=== PATIENT | female | born 1960 | race Caucasian/White ===

== ENCOUNTER 2017-09-20 13:57 | Inpatient (IN) | payer OTHER, MEDICARE ==
[~2017-09-20] VITALS: Ht 167.6 cm; Wt 56.7 kg
[2017-09-20] MEDS ORDERED: LITHIUM CARBON300 M4 PO (14:07)
[2017-09-20] MEDS ORDERED: FLUOXETINE HCL20 M2 PO (14:07)
[2017-09-20] MEDS ORDERED: MODAFINIL200 M1 PO (14:07)
[2017-09-20] MEDS ORDERED: NITROFURANTOIN50 M1 PO (14:08)
[2017-09-20 14:25] LABS: ABSOLUTE BASOPHIL COUNT 0 /CUMM (0.0-0.2); ABSOLUTE EOSINOPHIL COUNT 0 /CUMM (0.0-0.7); ABSOLUTE GRANULOCYTE CT 9.2 /CUMM (1.4-6.5); ABSOLUTE LYMPH COUNT 0.6 /CUMM (1.2-3.4); ABSOLUTE MONOCYTE COUNT 0.6 /CUMM (0.10-0.60); BASOPHIL % 0.1 % (0.0-2.0); EOSINOPHIL % 0.1 % (0-5); HEMATOCRIT 36.5 % (37-47); MEAN CORPUSCULAR HGB 31.1 PG (27.0-31.0); MEAN CORPUSCULAR HGB CONC 33.4 G/DL (33.0-37.0); MEAN CORPUSCULAR VOLUME 93.1 FL (81.0-99.0); MEAN PLATELET VOLUME 9.7 FL (7.4-10.4); RED BLOOD CELL CT 3.92 /CUMM (4.20-5.40); WHITE BLOOD CELL COUNT 10.4 /CUMM (4.8-10.8)
[2017-09-20 14:46] LABS: PLATELET COUNT 122 /CUMM (130-400)
[2017-09-20 14:47] LABS: GRANULOCYTE % 88.3 % (42.2-75.2)
[2017-09-20 14:55] LABS: LITHIUM 0.5 mmol/L (0.6-1.2)
--- NOTE | 2017-09-20 19:08 | ED AMS/SEIZURE/WEAK/DIZZY ---
History of Present Illness General Chief Complaint: Fever Stated Complaint: FEVER? WEAK Source: family Exam Limitations: clinical condition, confusion Vital Signs & Intake/Output Vital Signs & Intake/Output Vital Signs Date Time Temp Pulse Resp B/P B/P Pulse O2 O2 Flow FiO2 Mean Ox Delivery Rate 09/21 0031 98.3 09/20 2346 99.9 100/54 09/20 2327 100.0 84 16 123/59 99 Room Air 09/20 2315 99.2 80 16 92/53 99 Room Air 09/20 2209 99.9 83 16 99/60 95 Room Air 09/20 2129 100.7 09/20 2045 101.4 09/20 2013 101.4 88 18 96/58 99 Room Air 09/20 1827 78 19 98/56 97 Room Air 09/20 1406 99.8 85 22 107/65 96 ED Intake and Output 09/21 0000 09/20 1200 Intake Total 2000 Output Total 600 Balance 1400 Intake, IV 2000 Output, Urine 600 Patient 125 lb Weight Allergies Coded Allergies: No Known Allergies (09/20/17) Reconcile Medications Fluoxetine HCl 20 MG CAPSULE 1 CAP PO DAILY PROZAC (Reported) [place] Carbonate 300 MG CAPSULE 1 CAP PO BID BIPOLAR (Reported) Modafinil 200 MG TABLET 1 TAB PO QAM BIPOLAR (Reported) Nitrofurantoin Macrocrystal (Nitrofurantoin) 50 MG CAPSULE 1 CAP PO DAILY URINARY (Reported) Triage Note: PER HX OF BIPOLAR UNABLE TO TAKE ANY MEDS SINCE YESTERDAY D/T VOMITING NO DIARRHEA PT REPORTS TOO WEAK TO TALK, PER SPOUSE TEMP 103 90 MINUTES AGO DID NOT HAVE ANY TYLENOL Triage Nurses Notes Reviewed? yes Onset: Gradual Duration: getting worse Timing: recent history Injury Environment: home Severity: severe Severity Numbers: 7 HPI: Patient is a 57-year-old female with a past medical history of bipolar disorder currently compliant for 30 years of lithium chronic kidney disease due to lithium use, ADHD currently on modafinil and depression, UTIs who was brought in by family members who are concerned of a gradual onset since yesterday morning of profound listlessness weakness fatigue Symptoms worsen today where patient requires significant assistance to ambulate Family denies any loss of consciousness/speech or unilateral extremity weakness Family is also concerned of difficulty finding words when patient tries to speak History is limited due to patient's current clinical presentation Family does note a resolved fever prior to arrival Patient denies any headache blurred vision chest pain arm pain and jaw pain nausea vomiting Family is also noting worsening extremity tremors Patient last week just finished a course of nitrofurantoin for urinary tract infection patient denies any dysuria hematuria or increased frequency of urination (Edmar Montez) Past History Travel History Traveled to [place] past 21 day No Medical History Any Pertinent Medical History? see below for history Neurological: NONE EENT: NONE Cardiovascular: NONE Respiratory: NONE Gastrointestinal: NONE Hepatic: NONE Renal: NONE Musculoskeletal: NONE Psychiatric: bipolar disease Endocrine: NONE Surgical History Surgical History: non-contributory Psychosocial History What is your primary language Zambian Tobacco Use: Never used Family History Hx Contributory? No (Edmar Montez) Review of Systems Review of Systems Constitutional: Reports: see HPI, malaise, weakness. EENTM: Reports: no symptoms, see HPI. Respiratory: Reports: no symptoms, see HPI. Cardiovascular: Reports: see HPI. Denies: chest pain. GI: Reports: no symptoms, see HPI. Genitourinary: Reports: no symptoms. Musculoskeletal: Reports: no symptoms. Skin: Reports: no symptoms. Neurological/Psychological: Reports: see HPI, tremors. Hematologic/Endocrine: Reports: see HPI. Immunologic/Allergic: Reports: no symptoms. All Other Systems: Reviewed and Negative (Edmar Montez) Physical Exam Physical Exam General Appearance: no apparent distress, alert, lethargic Head: atraumatic Eyes: Bilateral: normal appearance, PERRL, EOMI. Ears, Nose, Throat: normal pharynx, normal ENT inspection, hearing grossly normal Neck: normal inspection Respiratory: chest non-tender, no respiratory distress Cardiovascular: regular rate/rhythm Peripheral Pulses: 2+ radial (R) Gastrointestinal: normal bowel sounds, soft, non-tender Extremities: limited range of motion Neurologic/Psych: awake, ORIENTED TO PLACE ONLY Core Measures ACS in differential dx? Yes CVA/TIA Diagnosis No NIH Stroke Scale (24 Hours) NIH Stroke Scale (24 Hours) Response Value Level of Consciousness drowsy 1 LOC Questions answers one correctly 1 LOC Commands obeys both correctly 0 Best Gaze normal 0 Visual [place] no visual loss 0 Facial Paresis normal 0 Motor Arm - Left drift 1 Motor Arm - Right drift 1 Motor Leg - Left no drift 0 Motor Leg - Right no drift 0 Limb Ataxia no ataxia 0 Sensory normal 0 Best Language mild to moderate aphasia 1 Dysarthria mild/mod slurring words 1 Extinction and Inattention no neglect 0 Total 6 Date Last Known Well 09/19/17 Time Last Known Well 0800 Swallow Evaluation Pass Swallow eval date 09/20/17 Swallow eval time 1952 Sepsis Present: No Sepsis Focused Exam Completed? No (Lidia HERNANDEZ,Edmar) Progress Differential Diagnosis: arrythmia, alcohol intoxication, anemia, benign positional vertigo, CVA/stroke, dehydration, drug intoxication, encephalitis, electrolyte imbalance, GI bleed, hypoglycemia, hypoxia, intracranial Hem., intracranial mass/tumor, labrynthitis, meningitis, Meniere's disease, migraine [place], multiple sclerosis, pneumonia, postural hypotension, presyncope, post- traumatic vertigo, sepsis, seizure disorder, subarachnoid Hem., UTI/pyelo, vertebrobasilar insuff Plan of Care: Orders Procedure Date/time Status Heart Healthy Diet 09/21 B Active LACTIC ACID 09/21 0255 Active Patient Data 09/21 0001 Active LACTIC ACID 09/20 2355 Active ED Holding Orders 09/20 2333 Active Admit to inpatient 09/20 2333 Active Vital Signs 09/20 2333 Active Code Status 09/20 2333 Active Add-on Test (ER Only) 09/20 2216 Active BLOOD CULTURE 09/20 2154 Active CEREBROSPINAL FLUID CULTURE 09/20 2126 Active CYTOLOGY SPECIMEN 09/20 2126 Active CSF TOTAL PROTEIN 09/20 2126 Complete CEREBROSPINAL FL CELL CT 09/20 2126 Complete CSF GLUCOSE 09/20 2126 Complete Add-on Test (ER Only) 09/20 210 Active CULTURE,URINE 09/20 1999 Active LACTIC ACID 09/20 193 Complete Add-on Test (ER Only) 09/20 191 Active Add-on Test (ER Only) 09/20 1914 Active Add-on Test (ER Only) 09/20 191 Active AMMONIA 09/20 1913 Complete EKG 09/20 190 Active THYROID STIMULATING HORMONE 09/20 1418 Complete TROPONIN LEVEL 09/20 1418 Complete FREE T4 09/20 1418 Complete ETHANOL 09/20 1418 Complete CREATINE PHOSPHOKINASE 09/20 1418 Complete RAPID VIRAL INFLUENZA A 09/20 1409 Complete URINE DRUG SCREEN FOR ER ONLY 09/20 1408 Complete URINALYSIS 09/20 1408 Complete MAGNESIUM 09/20 1408 Complete LITHIUM 09/20 1408 Complete COMPREHENSIVE METABOLIC PANEL 09/20 1408 Complete CBC WITHOUT DIFFERENTIAL 09/20 1408 Complete Current Medications Sig/Kirk Start time Last Medication Dose Stop Time Status Admin Sodium Chloride 1,000 ML ONCE ONE 09/20 2345 AC 09/21 (Normal Saline 0.9%) 09/21 623 0044 Laboratory Tests 09/21/17 0043: Lactic Acid Pending 09/20/172129: CSF Glucose 60, CSF Total Protein 39 09/20/172129: CSF WBC 2, CSF RBC 0, CSF Comment 09/20/171999: Urine Opiates Screen < 100.00, Methadone Screen < 40, Barbiturate Screen < 60, Ur Phencyclidine Scrn < 6.00, Amphetamines Screen < 100, U Benzodiazepines Scrn < 85, Urine Cocaine Screen < 50, Urine Cannabis Screen < 5.00, Urine Color STRAW , Urine Clarity HAZY H, Urine pH 6.5, Ur Specific [place] 1.010, Urine Protein 100 H, Urine Ketones NEG, Urine Nitrite NEG, Urine Bilirubin NEG, Urine Urobilinogen 0.2, Ur Leukocyte Esterase LARGE H, Ur Microscopic SEDIMENT EXAMINED, Urine RBC FEW H, Urine WBC > 75 H, Ur Epithelial Cells MANY H, Urine Bacteria MANY H, Urine Hemoglobin MOD H, Urine Glucose NEG 09/20/17 193: Lactic Acid 0.8, Ammonia < 9 L 09/20/17 1418: Anion Gap 15, Estimated GFR 27 L, BUN/Creatinine Ratio 13.7, Glucose 93, Calcium 10.1, Magnesium 2.3, Total Bilirubin 0.4, AST 17, ALT 30, Alkaline Phosphatase 74, Creatine Kinase 26 L, Troponin I < 0.01, Total Protein 6.7, Albumin 4.2, Globulin 2.5, Albumin/Globulin Ratio 1.7, TSH 1.010, Free T4 0.81, CBC w Diff NO MAN DIFF REQ, RBC 3.92 L, MCV 93.1, MCH 31.1 H, MCHC 33.4, RDW 14.0, MPV 9.7, Gran % 88.3 H, Lymphocytes % 6.0 L, Monocytes % 5.5, Eosinophils % 0.1, Basophils % 0.1, Absolute Granulocytes 9.2 H, Absolute Lymphocytes 0.6 L, Absolute Monocytes 0.6, Absolute Eosinophils 0, Absolute Basophils 0, [place] 0.5 L, Serum Alcohol < 10.0 Microbiology 09/20 2254 BLOOD: Blood Culture - RECD 09/20 2239 BLOOD: Blood Culture - RECD 09/20 2129 CENT N S: CSF Culture - RES 09/20 2129 CENT N S: Gram Stain - RES 09/20 1999 URINE ROUT: Urine Culture - RECD 09/20 1410 NASOPHARYN: Influenza Virus A & B Rapid Smear - COMP Per nursing staff that while in triage they evaluated patient and patient was having a blank stare and when asking questions she was not responding and staring out in the distance Patient on initial examination was noted to be listless and lethargic and alert and oriented 1 Patient does follow all commands appropriately on initial examination however does show bilateral extremity weakness CT scan was unremarkable CT scan was unremarkable however patient did have noted fever on the emergency room and hypotension Patient was given IV fluids IV acetaminophen No meningeal signs on exam negative Brudzinski negative Kernig however meningitis is of my differential were lumbar puncture was performed no complications CSF fluid and culture pending Blood cultures urine culture pending Patient's initial NIH stroke scale was noted to be 6 Patient does present with confusion and suspicion of sepsis Patient after fluid resuscitation was administered had improvement of hypotension upon admission Discussed admission with patient and family members were aware and have no questions Diagnostic Imaging: Viewed by Me: CT Scan. Radiology Impression: no acute abnormality, no fracture Initial ED EKG: normal QRS complex, normal sinus rhythm (83 BPM,NSR) Comments: PATIENT: YANCI HUTSON PRESENT AGE: 57 PATIENT ACCOUNT NO: [id number] : 56 LOCATION: [facility] ORDERING PHYSICIAN: Edmar HERNANDEZ SERVICE DATE: 09/20/17 EXAM TYPE: CAT - CT HEAD WO IV CONTRAST EXAMINATION: CT HEAD WITHOUT CONTRAST CLINICAL INFORMATION: Confusion. Altered mental status. COMPARISON: None TECHNIQUE: Contiguous axial imaging was performed from the skull base to vertex without intravenous administration of contrast. DLP: 596.52 mGy-cm FINDINGS: There is no evidence of acute intracranial hemorrhage or territorial infarction. No abnormal mass effect or midline shift is seen. [place] to white matter differentiation is well preserved. No extra-axial fluid collections are identified. The ventricles are normal in size. There is no abnormal attenuation within the brain parenchyma. The osseous structures and soft tissues are normal. The mastoid air cells and visualized portions of the paranasal sinuses are well aerated. IMPRESSION: No acute intracranial pathology. DICTATED BY: Jose Prieto MD DATE/TIME DICTATED:09/20/172010 MAINTENANCE CONSTRUCTION HELPER:KWAN DATE/TIME TRANSCRIBED:09/20/172010 (Edmar Montez) ED Sepsis Exam Date of Focused Sepsis Exam: 09/20/17 Time of Focused Sepsis Exam: 1999 Sepsis Cardiac Exam: Tachycardia Sepsis Resp Exam: CTA Sepsis Cap Refill Exam: <2 Sec Sepsis Peripheral Pulse Exam: Normal Sepsis Peripheral Pulse Location: Radial Sepsis Skin Color Exam: Normal for Ethnicity Skin Temp/Moisture Exam: Warm/Dry (Edmar Montez) Departure Departure Disposition: STILL A PATIENT Condition: Guarded Clinical Impression Primary Impression: Sepsis Secondary Impressions: Altered mental status, UTI (urinary tract infection) Referrals: Candido Rojas APRN (PCP/Family) Departure Forms: Customer Survey General Discharge Information Admission Note Spoke With: Carlene Colón MD Documentation of Exam: Documentation of any treatments & extenuating circumstances including Concerns Regarding Discharge (functional status, medication knowledge or non-compliance, living conditions, etc.) that warrant an admission rather than observation: [ Patient requires IV antibiotics, infectious disease consultation, IV fluid resuscitation repeat labs] (Edmar Montez) PA/ROUGH RICE GRADER Co-Sign Statement Statement: ED Attending supervision documentation- [X] I saw and evaluated the patient. I have also reviewed all the pertinent lab results and diagnostic results. I agree with the findings and the plan of care as documented in the PA's/ROUGH RICE GRADER's documentation. [X] I have reviewed the ED Record and agree with the PA's/ROUGH RICE GRADER's documentation. [] Additions or exceptions (if any) to the PAs/ROUGH RICE GRADER's note and plan are summarized below: [Patient to be admitted for sepsis urological origin. Follow-up CSF cultures as well as blood cultures. ID consultation, aggressive hydration.] (Misty ZAVALA,Jairo Petit) Procedures Additional Procedures Additional Procedures: lumbar puncture Progress: Discussed risks and benefits of lumbar puncture with patient and family members, signed consent form, Under sterile technique patient was placed in right lateral decubitus position using landmarks L3-L4 was located using approximately 10 mL of 1% lidocaine local anesthesia was successful After one attempt a nontraumatic clear cerebral spinal fluid was obtained Patient tolerated procedure well 5 minutes of direct pressure was used after needle was removed and bandage was applied patient was placed in supine 30 of head of bed (Edmar Montez) Critical Care Note Critical Care Note Critical Care Time: 30-74 min (Edmar Montez)
--- NOTE | 2017-09-20 20:16 | CT SCAN REPORT ---
EXAMINATION: CT HEAD WITHOUT CONTRAST CLINICAL INFORMATION: Confusion. Altered mental status. COMPARISON: None TECHNIQUE: Contiguous axial imaging was performed from the skull base to vertex without intravenous administration of contrast. DLP: 596.52 mGy-cm FINDINGS: There is no evidence of acute intracranial hemorrhage or territorial infarction. No abnormal mass effect or midline shift is seen. [place] to white matter differentiation is well preserved. No extra-axial fluid collections are identified. The ventricles are normal in size. There is no abnormal attenuation within the brain parenchyma. The osseous structures and soft tissues are normal. The mastoid air cells and visualized portions of the paranasal sinuses are well aerated. IMPRESSION: No acute intracranial pathology.
--- NOTE | 2017-09-21 00:06 | History & Physical ---
General Information and HPI Allergies/Medications Allergies: Coded Allergies: No Known Allergies (09/20/17) Home Med list Fluoxetine HCl 20 MG CAPSULE 1 CAP PO DAILY PROZAC (Reported) [place] Carbonate 300 MG CAPSULE 1 CAP PO BID BIPOLAR (Reported) Modafinil 200 MG TABLET 1 TAB PO QAM BIPOLAR (Reported) Nitrofurantoin Macrocrystal (Nitrofurantoin) 50 MG CAPSULE 1 CAP PO DAILY URINARY (Reported) Past History Travel History Traveled to [place] past 21 day No Medical History Neurological: NONE EENT: NONE Cardiovascular: NONE Respiratory: NONE Gastrointestinal: NONE Hepatic: NONE Renal: NONE Musculoskeletal: NONE Psychiatric: bipolar disease Endocrine: NONE Surgical History Surgical History: non-contributory Core Measures/Misc (05/02) Cerebrovascular Accident CVA/TIA Diagnosis: No Date Last Known Well: 09/19/17 Time Last Known Well: 0800 Swallow Evaluation Pass
--- NOTE | 2017-09-21 02:08 | History & Physical ---
Mary ZAVALA,[facility] 09/21/17 0208: General Information and HPI MD Statement: I have seen and personally examined YANCI HUTSON and documented this H&P. The patient is a 57 year old F who presented with a patient stated chief complaint of decreased responsiveness and lethargy. Source of Information: patient, family Exam Limitations: clinical condition History of Present Illness: Ms Andrade is a 57-year-old female with past medical history of bipolar disorder , manic depressive disorder, IBS who presented to the emergency department due to continued lethargy and change in mentation for 48 hours prior to admission. Much of the clinical history was obtained by the patient's Bill who was present at bedside. Patient was in her normal state of health until the morning of Wednesday09/19/2017. She subsequently developed decreased by mouth intake over the course of the day. On Wednesday evening the patient became even more listless. On Wednesday morning the patient's was concerned that the patient's mentation was changing (she became less responsive) and subsequently brought her into the emergency department for additional workup. Patient has had multiple urinary tract infections owing to a surgical history of a bladder/uterine lift? She was started on an antibiotic (unsure of the name) on 09/13/2017. It also appears that the patient had called her primary care physician requesting an additional antibiotic to be started on 09/20/2017. On this occasion she was prescribed Nitrofurantion. Over the course of our clinical interaction the patient's mentation did improve and she was able to participate in the HPI. She subsequently denied any nausea, vomiting but she did endorse subjective chills. No recent weight loss or fever. No chest pain. No cough no shortness of breath. No abdominal pain. She did endorse dysuria, frequency, foul- smelling dysuria and some hematuria. No exposure to sick contacts recently. Patient's primary care physician is Dr Candido Rojas at [facility] in [facility]. Allergies/Medications Allergies: Coded Allergies: No Known Allergies (09/20/17) Home Med list Fluoxetine HCl 20 MG CAPSULE 1 CAP PO DAILY PROZAC (Reported) Cantril Carbonate 300 MG CAPSULE 1 CAP PO BID BIPOLAR (Reported) Modafinil 200 MG TABLET 1 TAB PO QAM BIPOLAR (Reported) Nitrofurantoin Macrocrystal (Nitrofurantoin) 50 MG CAPSULE 1 CAP PO DAILY URINARY (Reported) Compliance With Home Meds: GOOD Past History Travel History Traveled to [place] past 21 day No Medical History Neurological: NONE EENT: NONE Cardiovascular: NONE Respiratory: NONE Gastrointestinal: NONE Hepatic: NONE Renal: NONE Musculoskeletal: NONE Psychiatric: bipolar disease Endocrine: NONE Surgical History Surgical History: knee replacement (December 2016) Past Family/Social History Psychosocial History Where do you live? Home Who Do You Live With? spouse Services at Home: None Primary Language: Tam[place] Smoking Status: Former Smoker ETOH Use: denies use Illicit Drug Use: denies illicit drug use Functional Ability ADLs Independent: dressing, eating, toileting, bathing. Ambulation: independent IADLs Independent: shopping, housework, finances, food prep, telephone, transportation , medication admin. Review of Systems Review of Systems Constitutional: Denies: see HPI. Exam & Diagnostic Data Last 24 Hrs of Vital Signs/I&O Vital Signs Date Time Temp Pulse Resp B/P B/P Pulse O2 O2 Flow FiO2 Mean Ox Delivery Rate 09/21 0620 98.7 88 18 92/52 96 09/21 0406 98.1 68 18 92/58 09/21 0126 99.2 91 20 98/67 97 Room Air 09/21 0031 98.3 09/20 2346 99.9 100/54 02 2327 100.0 84 16 123/59 99 Room Air / 2315 99.2 80 16 92/53 99 Room Air 09/20 2209 99.9 83 16 99/60 95 Room Air 09/20 2129 100.7 09/20 2045 101.4 09/20 2013 101.4 88 18 96/58 99 Room Air 09/20 1827 78 19 98/56 97 Room Air 09/20 1406 99.8 85 22 107/65 96 Intake & Output 09/21 0800 / 0000 09/20 1600 Intake Total 2000 Output Total 800 600 Balance -800 1400 Intake, IV 2000 Output, Urine 800 600 Patient 56.699 kg 56.699 kg Weight Physical Exam General Appearance Alert, Cooperative, No Acute Distress, Oriented to time and person. Skin No Rashes, No Breakdown Skin Temp/Moisture Exam: Warm/Dry Sepsis Skin Exam (color): Normal for Ethnicity HEENT Mucous membreanes dry Cardiovascular Regular Rate, Normal S1, Normal S2 Lungs Clear to Auscultation Abdomen Normal Bowel Sounds, Soft, No Tenderness, Left Sided CVA Tenderness + Neurological Normal Speech, Strength at 5/5 X4 Ext Extremities No Cyanosis, No Edema, Normal Pulses Vascular Normal Pulses Last 24 Hrs of Labs/Danie: Laboratory Tests 09/21/17 0617: Sodium Pending, Potassium Pending, Chloride Pending, Carbon Dioxide Pending, Anion Gap Pending, BUN Pending, Creatinine Pending, BUN/Creatinine Ratio Pending , Lactic Acid Pending, CBC w Diff Pending, WBC Pending, RBC Pending, Hgb Pending , Hct Pending, MCV Pending, MCH Pending, MCHC Pending, RDW Pending, Plt Count Pending, MPV Pending 09/21/17 0600: Lactic Acid Cancelled, CBC w Diff Cancelled, WBC Cancelled, RBC Cancelled, Hgb Cancelled, Hct Cancelled, MCV Cancelled, MCH Cancelled, MCHC Cancelled, RDW Cancelled, Plt Count Cancelled, MPV Cancelled 09/21/17 0255: Lactic Acid Cancelled 09/21/17 0043: Lactic Acid 0.8 09/20/170: CSF Glucose 60, CSF Total Protein 39 09/20/172129: CSF WBC 2, CSF RBC 0, CSF Comment 09/20/171999: Urine Opiates Screen < 100.00, Methadone Screen < 40, Barbiturate Screen < 60, Ur Phencyclidine Scrn < 6.00, Amphetamines Screen < 100, U Benzodiazepines Scrn < 85, Urine Cocaine Screen < 50, Urine Cannabis Screen < 5.00, Urine Color STRAW , Urine Clarity HAZY H, Urine pH 6.5, Ur Specific [place] 1.010, Urine Protein 100 H, Urine Ketones NEG, Urine Nitrite NEG, Urine Bilirubin NEG, Urine Urobilinogen 0.2, Ur Leukocyte Esterase LARGE H, Ur Microscopic SEDIMENT EXAMINED, Urine RBC FEW H, Urine WBC > 75 H, Ur Epithelial Cells MANY H, Urine Bacteria MANY H, Urine Hemoglobin MOD H, Urine Glucose NEG 09/20/17 1932: Lactic Acid 0.8, Ammonia < 9 L 09/20/17 1418: Anion Gap 15, Estimated GFR 27 L, BUN/Creatinine Ratio 13.7, Glucose 93, Calcium 10.1, Magnesium 2.3, Total Bilirubin 0.4, AST 17, ALT 30, Alkaline Phosphatase 74, Creatine Kinase 26 L, Troponin I < 0.01, Total Protein 6.7, Albumin 4.2, Globulin 2.5, Albumin/Globulin Ratio 1.7, TSH 1.010, Free T4 0.81, CBC w Diff NO MAN DIFF REQ, RBC 3.92 L, MCV 93.1, MCH 31.1 H, MCHC 33.4, RDW 14.0, MPV 9.7, Gran % 88.3 H, Lymphocytes % 6.0 L, Monocytes % 5.5, Eosinophils % 0.1, Basophils % 0.1, Absolute Granulocytes 9.2 H, Absolute Lymphocytes 0.6 L, Absolute Monocytes 0.6, Absolute Eosinophils 0, Absolute Basophils 0, Cantril 0.5 L, Serum Alcohol < 10.0 Microbiology 09/20 2254 BLOOD: Blood Culture - RECD 09/20 2239 BLOOD: Blood Culture - RECD 09/20 2129 CENT N S: CSF Culture - RES 09/20 2129 CENT N S: Gram Stain - RES 09/20 1999 URINE ROUT: Urine Culture - RECD 09/20 1410 NASOPHARYN: Influenza Virus A & B Rapid Smear - COMP Assessment/Plan Assessment: Ms Andrade is a 57-year-old female with past medical history of bipolar disorder , manic depressive disorder, IBS who presented to the emergency department due to continued lethargy and change in mentation for 48 hours prior to admission. Her mentation changes likely due to extreme dehydration in the setting of a UTI. A lumbar Puncture was done in the ER, which was non significant. We will admit her to the Gen. medical service and address the following problems. #UTI, suspect pyelonephritis #Altered Mental Status #History of bipolar #History ADHD Continue ceftriaxone. Repeat CBC and BEP. Lactate with AM labs to ensure no significan hypoperfusion. If AM creatinine improves obtain CT abdomen and pelvis with contrast to rule out pyelonephritis given left-sided CVA tenderness. The patient remains hypotensive over the course of the morning despite aggressive fluid hydration may consider escalating care to the critical care unit. Follow-up on urinary cultures. Follow-up blood cultures. May consider Urology consultation to rule out structural abnormalities especially in light of the recent multiple recurrent UTI's. Continue home medications. Diet heart healthy. DVT prophylaxis with heparin Patient is a full code As Ranked By This Provider Problem List: 1. UTI (urinary tract infection) 2. Sepsis 3. Altered mental status Core Measures/Misc (05/02) Acute Coronary Syndrome ACS Diagnosis: No Congestive Heart Failure Congestive Heart Failure Diagnosis No Cerebrovascular Accident CVA/TIA Diagnosis: No Date Last Known Well: 09/19/17 Time Last Known Well: 0800 Swallow Evaluation Pass VTE (View Protocol) VTE Risk Factors Age>40 No Mechanical VTE Prophylaxis d/t N/A MechProphylax Ordered No VTE Pharm Prophylaxis d/t NA PharmProphylax ordered Sepsis (View protocol) Sepsis Present: Yes Resident Review Statement Resident Statement: examined this patient, discussed with internal corrosion specialist Carlene Colón 09/21/17 0809: Attending MD Review Statement Attending Statement Attending MD Statement: examined this patient, discuss w/resident/PA/P[employer] AND [employer]OVEL WORKER, agreed w/resident/PA/[employer] AND [employer]OVEL WORKER, discussed with family, reviewed EMR data (avail), reviewed images, amended to note Attending Assessment/Plan: CC: Altered behavior PMH: Bipolar disorder, IBS, ADHD, right knee replacement, surgery for uterus prolapse Patient was brought in ER by her for altered behavior, extremely lethargic, extremely forgetful, fever spike of 102.5. Patient does not provide much details. bedside provides the history. Patient endorses increased urinary frequency and burning. According to patient's patient was prescribed antibiotic for UTI few days back, patient never took them. Last few days patient appeared extremely lethargic, unable to take medications. Even though ER note mentions about diarrhea and vomiting patient and her denies that. No loss of consciousness, no seizure-like activity but patient had some staring spells. No falls, no dysarthria. Patient just was more listless and abnormal behavior. Vitals: BP max 101.4, pulse 80s, RR 22, blood pressure 107/65 on arrival stabilized around 99/60, saturating 96% on room air On exam: A O 2, cooperative, thin built, no acute distress, neck supple, JVD normal, no lymphadenopathy, mucosa dry, no focal neurological deficit, no dependent edema, no obvious skin rashes or inflammation CVS: S1-S2, RRR. RS: Clear to auscultate bilaterally. Abdomen: Soft, NT, ND, bowel sounds present, left CVA tenderness Labs: WBC 10.4, hemoglobin 12.2, hematocrit 36.5, platelet 122, neutrophils 88%, BMP and LFT unremarkable except creatinine 1.9, ammonia less than 9, CK 26, troponin 0.01, U tox unremarkable UA positive for leukocyte esterase CSF WBC to RBC 0 glucose [address] head: No acute intracranial pathology. Assessment and plan 52-year-old female with past medical history significant for bipolar disorder, IBS, ADHD presented in ER for increased lethargy, listlessness, fever of 102.5 at home with UTI symptoms. Given her altered mental status and fever spike in ER lumbar puncture was performed which was not significant. She has right CVA tenderness, evidence of UTI with mild left shift. Upon aggressive hydration and antibiotics patient's mentation improved remarkably. + Suspected left pyelonephritis + Metabolic encephalopathy secondary to infection + History of Bipolar disorder, IBS, ADHD, right knee replacement, surgery for uterus prolapse - Admit to general medicine - Continue aggressive hydration - Trend lactate - Continue IV ceftriaxone - Follow blood culture and urine culture - Continue her on psych meds - If creatinine improves get CT abdomen with IV contrast in a.m., if no improvement consider CT without contrast for pyelonephritis - DVT prophylaxis
--- NOTE | 2017-09-21 08:05 | PN- Housestaff ---
Wendy Rothmna 09/21/17 0805: Subjective Follow-up For: Sepsis of urologic origin Altered mental status(metabolic encephalopathy secondary to underlying urinary tract infection) History of bipolar disease History of IBS Subjective: Patient is seen and examined this morning seems much better than yesterday, nausea is better. Vitals are stable. Denies any shortness of breath trouble breathing palpitations. Denies any abdominal discomfort. No urinary symptoms including hematuria or frequency urgency. Review of Systems Constitutional: Denies: chills, diaphoresis, fever, malaise. EENTM: Denies: double vision, visual changes, eye pain. Cardiovascular: Denies: chest pain, edema, orthopena. Respiratory: Denies: cough, hemoptysis, orthopnea. Gastrointestinal: Denies: abdominal pain, constipation, diarrhea. Objective Last 24 Hrs of Vital Signs/I&O Vital Signs Date Time Temp Pulse Resp B/P B/P Pulse O2 O2 Flow FiO2 Mean Ox Delivery Rate 09/21 1156 98.1 74 20 100/60 100 Room Air 09/21 0842 98.1 79 20 90/60 97 Room Air / 0620 98.7 88 18 92/52 96 / 0406 98.1 68 18 92/58 02/ 0126 99.2 91 20 98/67 97 Room Air / 0031 98.3 02/05 2346 99.9 100/54 02/05 2327 100.0 84 16 123/59 99 Room Air 02/05 2315 99.2 80 16 92/53 99 Room Air / 2209 99.9 83 16 99/60 95 Room Air / 2129 100.7 / 2045 101.4 09/20 2014 101.4 88 18 96/58 99 Room Air 02/05 1827 78 19 98/56 97 Room Air Intake & Output 09/21 1600 02/06 0800 02/ 0000 Intake Total 2000 Output Total 800 600 Balance -800 1400 Intake, IV 2000 Output, Urine 800 600 Patient 125 lb Weight Physical Exam General Appearance: Alert, Oriented X3 Skin: No Rashes, No Breakdown Cardiovascular: Regular Rate, Normal S1, Normal S2 Lungs: Clear to Auscultation Abdomen: Normal Bowel Sounds, Soft, No Tenderness Neurological: Normal Gait, Normal Speech Extremities: No Clubbing, No Cyanosis Current Medications: Current Medications Sig/Kirk Start time Last Medication Dose Route Stop Time Status Admin Acetaminophen 0 .STK-MED ONE 09/20 2043 DC IV Acetaminophen 1,000 MG ONCE ONE 09/20 2029 DC 09/20 N/A 1 UNIT IV 09/20 Ceftriaxone Sodium 1,000 MG DAILY 09/21 1000 AC 09/21 IV 1000 Ceftriaxone Sodium 0 .STK-MED ONE 09/20 2226 DC .ROUTE Ceftriaxone Sodium 1,000 MG ONCE ONE 09/20 2214 DC 09/20 IV 09/20 221 2314 Fluoxetine HCl 20 MG DAILY 09/21 1000 AC 09/21 PO 1000 Heparin Sodium 0 .STK-MED ONE 09/21 1410 DC (Porcine) .ROUTE Heparin Sodium 0 .STK-MED ONE 09/21 0848 DC (Porcine) .ROUTE Heparin Sodium 5,000 UNIT Q8 09/21 0600 AC 09/21 (Porcine) SC 1358 Lactobacillus 1 CAP BID 09/21 1315 AC 09/21 Acidophilus PO 1358 Lidocaine 0 .STK-MED ONE 09/20 2046 DC .ROUTE Schaller Carbonate 300 MG BID 09/21 1000 AC 09/21 PO 1000 Modafinil 200 MG DAILY 09/21 1000 AC 09/21 PO 1000 Sodium Chloride 1,000 ML Q10H 09/21 0830 DC IV 09/22 0429 Sodium Chloride 1,000 ML Q6H 09/21 0245 DC 09/21 IV 09/21 0844 0249 Sodium Chloride 1,000 ML ONCE ONE 09/20 2345 DC 09/21 IV 09/21 0624 0044 Sodium Chloride 1,000 ML BOLUS ONE 09/20 2214 DC 09/20 IV 09/20 2314 2222 Sodium Chloride 1,000 ML BOLUS ONE 09/20 2029 DC 09/20 IV 09/209 2038 Sodium Chloride 1,000 ML BOLUS ONE 09/20 1845 DC 09/20 IV 09/20 1944 1855 Last 24 Hrs of Lab/Danie Results Last 24 Hrs of Labs/Mics: Laboratory Tests 09/21/17 0617: Anion Gap 14, Estimated GFR 33 L, BUN/Creatinine Ratio 15.0, Lactic Acid 1.1, CBC w Diff NO MAN DIFF REQ, RBC 2.85 L, MCV 95.1, MCH 31.3 H, MCHC 32.9 L, RDW 14.4, MPV 10.2, Gran % 88.1 H, Lymphocytes % 4.0 L, Monocytes % 7.8, Eosinophils % 0, Basophils % 0.1, Absolute Granulocytes 6.8 H, Absolute Lymphocytes 0.3 L, Absolute Monocytes 0.6, Absolute Eosinophils 0, Absolute Basophils 0 09/21/17 0600: Lactic Acid Cancelled, CBC w Diff Cancelled, WBC Cancelled, RBC Cancelled, Hgb Cancelled, Hct Cancelled, MCV Cancelled, MCH Cancelled, MCHC Cancelled, RDW Cancelled, Plt Count Cancelled, MPV Cancelled 09/21/17 0255: Lactic Acid Cancelled 09/21/17 0043: Lactic Acid 0.8 09/20/172129: CSF Glucose 60, CSF Total Protein 39 09/20/172129: CSF WBC 2, CSF RBC 0, CSF Comment 09/20/171999: Urine Opiates Screen < 100.00, Methadone Screen < 40, Barbiturate Screen < 60, Ur Phencyclidine Scrn < 6.00, Amphetamines Screen < 100, U Benzodiazepines Scrn < 85, Urine Cocaine Screen < 50, Urine Cannabis Screen < 5.00, Urine Color STRAW , Urine Clarity HAZY H, Urine pH 6.5, Ur Specific [place] 1.010, Urine Protein 100 H, Urine Ketones NEG, Urine Nitrite NEG, Urine Bilirubin NEG, Urine Urobilinogen 0.2, Ur Leukocyte Esterase LARGE H, Ur Microscopic SEDIMENT EXAMINED, Urine RBC FEW H, Urine WBC > 75 H, Ur Epithelial Cells MANY H, Urine Bacteria MANY H, Urine Hemoglobin MOD H, Urine Glucose NEG 09/20/17 193: Lactic Acid 0.8, Ammonia < 9 L Microbiology 09/20 2254 BLOOD: Blood Culture - RES GRAM NEGATIVE RODS 09/20 2239 BLOOD: Blood Culture - RES GRAM NEGATIVE RODS 09/20 2129 CENT N S: CSF Culture - RES 09/20 2129 CENT N S: Gram Stain - RES 09/20 1999 URINE ROUT: Urine Culture - RES GRAM NEGATIVE RODS Assessment/Plan Assessment: Patient is a 52-year-old female with past medical history significant for bipolar disorder, IBS, ADHD, recurrent urinary tract infections with last many years(chronically on antibiotics), presented again to the ED for the evaluation of altered mental status with evidence of urinary tract infection on labs. Personal vitals on admission: Tmax of 101.4, with blood pressure 107/65, pulse 80s, RR 22, Labs: WBC 10.4, hemoglobin 12.2, hematocrit 36.5, platelet 122, neutrophils 88%, BMP and LFT unremarkable except creatinine 1.9, ammonia less than 9, CK 26, troponin 0.01, U tox unremarkable UA positive for leukocyte esterase CSF WBC to RBC 0 glucose [address] head: No acute intracranial pathology. Problem list: Sepsis of urologic origin Altered mental status(metabolic and gastropathy secondary to underlying urinary tract infection) History of bipolar disease History of IBS Plan: Sepsis of urologic origin with Altered mental status(metabolic encephalopathy secondary to underlying urinary tract infection) * Continue to monitor patient on the [facility] * Mental status improved after getting IV antibiotics and fluids, urine cultures grew gram-negative rods(culture sensitivities are still pending) * Continue with IV ceftriaxone and fluids for now pending above * Pending blood cultures. * Patient has been evaluated by Dr. Alonzo recommended to continue with conservative management with IV antibiotics and fluids, will do bladder scan with residual urine volume. * Obtain CT abdomen and pelvis without contrast to rule out any underlying pyelonephritis( CT cannot be done with contrast due to elevated creatinine. * H&H dropped likely due to hemodilution after getting fluids Will monitor CBCs tomorrow. Acute kidney failure likely due to the dehydration * Creatinine improved from yesterday continue with IV fluids avoid any nephrotoxic agents. Hypernatremia * Likely due to dehydration * Monitor sodium tomorrow Continue all her home medications. DVT prophylaxis with heparin Patient is full code Problem List: 1. UTI (urinary tract infection) 2. Sepsis 3. Altered mental status Pain Ratin Pain Location: When necessary Tylenol Pain Goal: Remain pain free Pain Plan: PRN TYLENOL Tomorrow's Labs & Rationales: CBC AND BEP Feng ZAVALA,Kelly 09/21/17 1127: Attending MD Review Statement Attending Statement Attending MD Statement: examined this patient, discuss w/resident/PA/WORKING SUPERVISOR, agreed w/resident/PA/WORKING SUPERVISOR, discussed with family, reviewed EMR data (avail), discussed with nursing, discussed with case mgmt, reviewed images, amended to note Attending Assessment/Plan: Patient seen and examined, feels slightly better. Backis improved a little. Patient denies any sob, cp. Vital Signs Date Time Temp Pulse Resp B/P B/P Pulse O2 O2 Flow FiO2 Mean Ox Delivery Rate 09/21 0842 98.1 79 20 90/60 97 Room Air 09/21 0620 98.7 88 18 92/52 96 09/21 0406 98.1 68 18 92/58 09/21 0126 99.2 91 20 98/67 97 Room Air 09/21 0031 98.3 09/20 2346 99.9 100/54 09/20 2327 100.0 84 16 123/59 99 Room Air 09/20 2315 99.2 80 16 92/53 99 Room Air 09/20 2209 99.9 83 16 99/60 95 Room Air 09/20 2129 100.7 09/20 2045 101.4 09/20 2013 101.4 88 18 96/58 99 Room Air 09/20 1827 78 19 98/56 97 Room Air 09/20 1406 99.8 85 22 107/65 96 on exam; aox3, nad. cv; s1,s2, rrr resp; clear abd; soft, + left cva tenderness, bs+ ext; no edema. Laboratory Tests 09/21 09/21 09/21 0617 0600 0255 Chemistry Sodium (137 - 145 mmol/L) 148 H Potassium (3.5 - 5.1 mmol/L) 4.3 Chloride (98 - 107 mmol/L) 119 H Carbon Dioxide (22 - 30 mmol/L) 15 L Anion Gap (5 - 16) 14 BUN (7 - 17 mg/dL) 24 H Creatinine (0.5 - 1.0 mg/dL) 1.6 H Estimated GFR (>60 ml/min) 33 L BUN/Creatinine Ratio (7 - 25 %) 15.0 Lactic Acid (0.7 - 2.1 mmol/L) 1.1 Cancelled Cancelled Hematology CBC w Diff NO MAN DIFF REQ Cancelled WBC (4.8 - 10.8 /CUMM) 7.7 Cancelled RBC (4.20 - 5.40 /CUMM) 2.85 L Cancelled Hgb (12.0 - 16.0 G/DL) 8.9 L Cancelled Hct (37 - 47 %) 27.1 L Cancelled MCV (81.0 - 99.0 FL) 95.1 Cancelled MCH (27.0 - 31.0 PG) 31.3 H Cancelled MCHC (33.0 - 37.0 G/DL) 32.9 L Cancelled RDW (11.5 - 14.5 %) 14.4 Cancelled Plt Count (130 - 400 /CUMM) 75 L Cancelled MPV (7.4 - 10.4 FL) 10.2 Cancelled Gran % (42.2 - 75.2 %) 88.1 H Lymphocytes % (20.5 - 51.1 %) 4.0 L Monocytes % (1.7 - 9.3 %) 7.8 Eosinophils % (0 - 5 %) 0 Basophils % (0.0 - 2.0 %) 0.1 Absolute Granulocytes (1.4 - 6.5 /CUMM) 6.8 H Absolute Lymphocytes (1.2 - 3.4 /CUMM) 0.3 L Absolute Monocytes (0.10 - 0.60 /CUMM) 0.6 Absolute Eosinophils (0.0 - 0.7 /CUMM) 0 Absolute Basophils (0.0 - 0.2 /CUMM) 0 09/21 09/20 09/20 09/20 0043 2130 2130 1999 Chemistry Lactic Acid (0.7 - 2.1 mmol/L) 0.8 Other Body Source CSF WBC (0 - 5 /CUMM) 2 CSF RBC (-0 /CUMM) 0 CSF Comment CSF Glucose (40 - 70 mg/dL) 60 CSF Total Protein (12 - 60 mg/dL) 39 Toxicology Urine Opiates Screen (>2000 NG/ML) < 100.00 Methadone Screen (>300 NG/ML) < 40 Barbiturate Screen (>200 NG/ML) < 60 Ur Phencyclidine Scrn (>25 NG/ML) < 6.00 Amphetamines Screen (>1000 NG/ML) < 100 U Benzodiazepines Scrn (>200 NG/ML) < 85 Urine Cocaine Screen (>300 NG/ML) < 50 Urine Cannabis Screen (>50 NG/ML) < 5.00 Urines Urine Color (YEL,AMB,STR) STRAW Urine Clarity (CLEAR) HAZY H Urine pH (5.0 - 8.0) 6.5 Ur Specific [place] (1.001 - 1.035) 1.010 Urine Protein (NEG,<30 MG/DL) 100 H Urine Ketones (NEG) NEG Urine Nitrite (NEG) NEG Urine Bilirubin (NEG) NEG Urine Urobilinogen (0.1 - 1.0 EU/dl) 0.2 Ur Leukocyte Esterase (NEG) LARGE H Ur Microscopic SEDIMENT EXAMINED Urine RBC (0 - 5 /HPF) FEW H Urine WBC (0 - 2 /HPF) > 75 H Ur Epithelial Cells (NONE,FEW) MANY H Urine Bacteria (NEG/NONE) MANY H Urine Hemoglobin (NEG) MOD H Urine Glucose (N MG/DL) NEG 09/20 09/20 193 1418 Chemistry Sodium (137 - 145 mmol/L) 139 Potassium (3.5 - 5.1 mmol/L) 4.5 Chloride (98 - 107 mmol/L) 103 Carbon Dioxide (22 - 30 mmol/L) 21 L Anion Gap (5 - 16) 15 BUN (7 - 17 mg/dL) 26 H Creatinine (0.5 - 1.0 mg/dL) 1.9 H Estimated GFR (>60 ml/min) 27 L BUN/Creatinine Ratio (7 - 25 %) 13.7 Glucose (65 - 99 mg/dL) 93 Lactic Acid (0.7 - 2.1 mmol/L) 0.8 Calcium (8.4 - 10.2 mg/dL) 10.1 Magnesium (1.6 - 2.3 mg/dL) 2.3 Total Bilirubin (0.2 - 1.3 mg/dL) 0.4 AST (14 - 36 U/L) 17 ALT (9 - 52 U/L) 30 Alkaline Phosphatase (<127 U/L) 74 Ammonia (9 - 30 umol/L) < 9 L Creatine Kinase (30 - 135 U/L) 26 L Troponin I (< 0.11 ng/ml) < 0.01 Total Protein (6.3 - 8.2 g/dL) 6.7 Albumin (3.5 - 5.0 g/dL) 4.2 Globulin (1.9 - 4.2 gm/dL) 2.5 Albumin/Globulin Ratio (1.1 - 2.2 %) 1.7 TSH (0.270 - 4.200 uIU/mL) 1.010 Free T4 (0.64 - 1.79 ng/dL) 0.81 Hematology CBC w Diff NO MAN DIFF REQ WBC (4.8 - 10.8 /CUMM) 10.4 RBC (4.20 - 5.40 /CUMM) 3.92 L Hgb (12.0 - 16.0 G/DL) 12.2 Hct (37 - 47 %) 36.5 L MCV (81.0 - 99.0 FL) 93.1 MCH (27.0 - 31.0 PG) 31.1 H MCHC (33.0 - 37.0 G/DL) 33.4 RDW (11.5 - 14.5 %) 14.0 Plt Count (130 - 400 /CUMM) 122 L MPV (7.4 - 10.4 FL) 9.7 Gran % (42.2 - 75.2 %) 88.3 H Lymphocytes % (20.5 - 51.1 %) 6.0 L Monocytes % (1.7 - 9.3 %) 5.5 Eosinophils % (0 - 5 %) 0.1 Basophils % (0.0 - 2.0 %) 0.1 Absolute Granulocytes (1.4 - 6.5 /CUMM) 9.2 H Absolute Lymphocytes (1.2 - 3.4 /CUMM) 0.6 L Absolute Monocytes (0.10 - 0.60 /CUMM) 0.6 Absolute Eosinophils (0.0 - 0.7 /CUMM) 0 Absolute Basophils (0.0 - 0.2 /CUMM) 0 Toxicology Schaller (0.6 - 1.2 mmol/L) 0.5 L Serum Alcohol (<10 MG/DL) < 10.0 A/P; 57 y/o F with pmh sig for bipolar disorder, manic depressive disorder, IBS, admitted with sepsis, bacteremia and UTI. Patient growing GNR in urine/blood. CT could not be done with contrast therefore not very conclusive for pyelonephritis. Currently on ceftriaxone. We'll continue the same and medical follow-up on the cultures. Urology consult will be obtained. Continue the rest of the meds. DVt px; hep sq.
--- NOTE | 2017-09-21 08:10 | Admission Certification ---
Admission Certification Certification Statement - As attending physician, I certify that at the time of - admission, based on clinical presentation, severity of - symptoms, need for further diagnostic testing and - therapeutic interventions, and risk of adverse outcomes - without in-hospital treatment, in my clinical assessment, - this patient requires an acute hospital stay for a minimum - of two nights or longer. I have also considered psychsocial - factors such as support system, advanced age, financial - issues, cognitive issues, and failed out-patient treatments, - past re-admission history, safety of patient, and lack of - compliance as applicable. Specific rationale supporting this admission is: Suspected pyelonephritis, UTI with altered mental status
[2017-09-21 08:25] LABS: ABSOLUTE BASOPHIL COUNT 0 /CUMM (0.0-0.2); ABSOLUTE EOSINOPHIL COUNT 0 /CUMM (0.0-0.7); ABSOLUTE GRANULOCYTE CT 6.8 /CUMM (1.4-6.5); ABSOLUTE LYMPH COUNT 0.3 /CUMM (1.2-3.4); ABSOLUTE MONOCYTE COUNT 0.6 /CUMM (0.10-0.60); BASOPHIL % 0.1 % (0.0-2.0); EOSINOPHIL % 0 % (0-5); MEAN CORPUSCULAR HGB 31.3 PG (27.0-31.0); MEAN CORPUSCULAR HGB CONC 32.9 G/DL (33.0-37.0); MEAN CORPUSCULAR VOLUME 95.1 FL (81.0-99.0); MEAN PLATELET VOLUME 10.2 FL (7.4-10.4); PLATELET COUNT 75 /CUMM (130-400); RBC DISTRIBUTION WIDTH 14.4 % (11.5-14.5); WHITE BLOOD CELL COUNT 7.7 /CUMM (4.8-10.8)
[2017-09-21 08:27] LABS: HEMATOCRIT 27.1 % (37-47); RED BLOOD CELL CT 2.85 /CUMM (4.20-5.40)
[2017-09-21 08:55] LABS: GRANULOCYTE % 88.1 % (42.2-75.2)
--- NOTE | 2017-09-21 11:08 | CT SCAN REPORT ---
EXAMINATION: CT ABDOMEN AND PELVIS WITHOUT CONTRAST CLINICAL INFORMATION: Fever hypotension and urinary symptoms. Rule out pyelonephritis. COMPARISON: There are no prior studies for comparison. TECHNIQUE: Multidetector volumetric imaging was performed from the superior aspect of the liver through the pubic symphysis. Sagittal and coronal reformatted images were obtained on the technologist's workstation. DLP: 283.0 mGy-cm FINDINGS: LUNG BASES: Pleural thickening is present in the posterior aspect of the bilateral lung bases, greater on the right than on the left. Increased density in the lateral aspect of the right lung base extends toward the hilum suggestive of scarring. There is an area of increased density in the posterior lateral aspect of the right lung base, which contains a few air bronchograms. LIVER, GALLBLADDER, AND BILIARY TREE: The liver is difficult to assess without presence of IV contrast, the periportal regions are prominent which could represent either increased periportal fat or intrahepatic biliary ductal dilation. The possibility of mesenteric fat for this patient precludes evaluation for size of the common bile duct. The gallbladder is unremarkable with no evidence of radiopaque gallstones, gallbladder wall thickening, or obvious pericholecystic inflammatory changes. PANCREAS: Unremarkable. SPLEEN: Prominent, no focal splenic lesions.. ADRENAL GLANDS: Unremarkable. KIDNEYS AND URETERS: There is heterogeneous attenuation of both kidneys, with findings suggestive of renal cysts, in the upper pole of the right kidney and exophytic to the upper pole/mid region of the left kidney. The structure in the upper pole the right kidney is measures approximately 2.5 cm in size, while the cystic structure in the left kidney measures 4.5 cm. Both measure fluid density by Hounsfield units. No hydronephrosis is present no renal calculi are noted. Evaluation for perinephric inflammatory changes is not possible due to paucity of mesenteric fat.. BLADDER: Unremarkable. GASTROINTESTINAL TRACT: The small and large bowel are unremarkable. The appendix is not identified. ABDOMINAL WALL: No significant hernia is appreciated. LYMPH NODES: Numerous mesenteric lymph nodes are present, there is borderline lymphadenopathy in the right periaortic pericaval region, lymph nodes range in size from 1.0 to 1.1 cm in short axis dimension. VASCULAR: Unremarkable. PELVIC VISCERA: Unremarkable. OSSEOUS STRUCTURES: Broad-based dextroscoliosis of the thoracolumbar spine, with severe multilevel degenerative changes present in the lumbar spine. This includes cystic and sclerotic endplate changes throughout the lumbar spine as well as grade 1-2 anterolisthesis of L4 on L5.. IMPRESSION: 1. Increased density in the posterior lateral aspect of the right lung base containing air bronchograms. The findings are consistent with consolidation versus infiltrate versus atelectasis. Clinical correlation requested. Follow-up to resolution recommended. 2. Periaortic/paracaval lymphadenopathy is present. 3. Lack of IV contrast is limiting with regard to evaluation for pyelonephritis, multiple hypodense renal cysts are present. 4. Prominence of the periportal regions of the liver may represent prominent periportal fat versus intrahepatic biliary ductal dilation, the possibility of the mesenteric fat for this patient precludes evaluation of the extrahepatic biliary system.
--- NOTE | 2017-09-21 11:51 | Cons- Urology ---
General Information and HPI Consulting Request Date of Consult: 09/21/17 Requested By: Kelly Toney MD Reason for Consult: frequent UTI with sepsis Source of Information: patient, family Exam Limitations: no limitations History of Present Illness: 57-year-old brought to the emergency room with mental status change and fever. Patient noted to have symptoms of UTI once again according to the patient and her family. Currently alert and oriented 3 feeling much better after antibiotics. Allergies/Medications Allergies: Coded Allergies: No Known Allergies (09/20/17) Home Med List: Fluoxetine HCl 20 MG CAPSULE 1 CAP PO DAILY PROZAC (Reported) [place] Carbonate 300 MG CAPSULE 1 CAP PO BID BIPOLAR (Reported) Modafinil 200 MG TABLET 1 TAB PO QAM BIPOLAR (Reported) Nitrofurantoin Macrocrystal (Nitrofurantoin) 50 MG CAPSULE 1 CAP PO DAILY URINARY (Reported) Current Medications: Current Medications Sig/Kirk Start time Last Medication Dose Route Stop Time Status Admin Acetaminophen 0 .STK-MED ONE 09/20 2043 DC IV Acetaminophen 1,000 MG ONCE ONE 09/20 2030 DC 09/20 N/A 1 UNIT IV 09/20 Ceftriaxone Sodium 1,000 MG DAILY 09/21 1000 AC 09/21 IV 1000 Ceftriaxone Sodium 0 .STK-MED ONE 09/20 2226 DC .ROUTE Ceftriaxone Sodium 1,000 MG ONCE ONE 09/20 2214 DC 09/20 IV 09/20 221 2314 Fluoxetine HCl 20 MG DAILY / 1000 AC 09/21 PO 1000 Heparin Sodium 0 .STK-MED ONE 09/21 0848 DC (Porcine) .ROUTE Heparin Sodium 5,000 UNIT Q8 09/21 0600 AC 09/21 (Porcine) SC 0844 Lidocaine 0 .STK-MED ONE 09/20 2046 DC .ROUTE [place] Carbonate 300 MG BID 09/21 1000 AC 02 PO 1000 Modafinil 200 MG DAILY 09/21 1000 AC 09/21 PO 1000 Sodium Chloride 1,000 ML Q10H 09/21 0830 DC IV 09/22 0429 Sodium Chloride 1,000 ML Q6H 09/21 0245 DC 09/21 IV 09/21 0844 0249 Sodium Chloride 1,000 ML ONCE ONE 09/20 2345 DC 09/21 IV 09/21 0624 0044 Sodium Chloride 1,000 ML BOLUS ONE 09/20 2214 DC 09/20 IV 09/20 2314 222 Sodium Chloride 1,000 ML BOLUS ONE 09/20 2029 DC / IV /2128 Sodium Chloride 1,000 ML BOLUS ONE 09/20 1844 DC / IV /1943 185 Past History Medical History Neurological: NONE EENT: NONE Cardiovascular: NONE Respiratory: NONE Gastrointestinal: NONE Hepatic: NONE Renal: NONE Musculoskeletal: NONE Psychiatric: bipolar disease Endocrine: NONE Surgical History Pertinent Surgical History: knee replacement (December 2016) Psychosocial History Where Do You Live? Home Who Do You Live With? spouse Services at Home: None Primary Language: Iranian Smoking Status: Former Smoker ETOH Use: denies use Illicit Drug Use: denies illicit drug use Functional Ability ADLs Independent: dressing, eating, toileting, bathing. Ambulation: independent IADLs Independent: shopping, housework, finances, food prep, telephone, transportation , medication admin. Employment History Retired? unknown Review of Systems Review of Systems Constitutional: Reports: fever. EENTM: Denies: no symptoms. Cardiovascular: Denies: no symptoms. Respiratory: Denies: no symptoms. GI: Reports: abdominal pain, bloating. Genitourinary: Reports: dysuria, frequency. Musculoskeletal: Denies: no symptoms. Skin: Denies: no symptoms. Exam & Diagnostic Data Vital Signs and I&O Vital Signs Date Time Temp Pulse Resp B/P B/P Pulse O2 O2 Flow FiO2 Mean Ox Delivery Rate 09/21 0742 98.1 79 20 90/60 97 Room Air 09/21 0620 98.7 88 18 92/52 96 09/21 0406 98.1 68 18 92/58 09/21 0126 99.2 91 20 98/67 97 Room Air 09/21 0031 98.3 09/20 2346 99.9 100/54 / 2327 100.0 84 16 123/59 99 Room Air 09/20 2315 99.2 80 16 92/53 99 Room Air 09/20 2209 99.9 83 16 99/60 95 Room Air 09/209 100.7 09/20 2044 101.4 09/20 2013 101.4 88 18 96/58 99 Room Air 09/20 1827 78 19 98/56 97 Room Air 09/20 1406 99.8 85 22 107/65 96 Intake & Output 09/21 1600 09/21 0809/21 0000 09/20 1600 09/20 0809/20 0000 Intake Total 2000 Output Total 800 600 Balance -800 1400 Intake, IV 2000 Output, Urine 800 600 Patient 125 lb 125 lb Weight Physical Exam General Appearance: well developed/nourished, no apparent distress, alert, awake Head: atraumatic Eyes: Bilateral: normal appearance. Neck: normal inspection Respiratory: normal breath sounds Cardiovascular: regular rate/rhythm Gastrointestinal: normal bowel sounds, soft, non-tender Back: no vertebral tenderness Extremities: normal inspection (right knee replacement) Neurologic/Psych: no motor/sensory deficits, awake, alert, oriented x 3 Skin: intact, normal color, warm/dry Reproductive: Normal female genitalia Last 24 Hours of Labs: Laboratory Tests 09/21 09/21 09/21 0617 0600 0255 Chemistry Sodium (137 - 145 mmol/L) 148 H Potassium (3.5 - 5.1 mmol/L) 4.3 Chloride (98 - 107 mmol/L) 119 H Carbon Dioxide (22 - 30 mmol/L) 15 L Anion Gap (5 - 16) 14 BUN (7 - 17 mg/dL) 24 H Creatinine (0.5 - 1.0 mg/dL) 1.6 H Estimated GFR (>60 ml/min) 33 L BUN/Creatinine Ratio (7 - 25 %) 15.0 Lactic Acid (0.7 - 2.1 mmol/L) 1.1 Cancelled Cancelled Hematology CBC w Diff NO MAN DIFF REQ Cancelled WBC (4.8 - 10.8 /CUMM) 7.7 Cancelled RBC (4.20 - 5.40 /CUMM) 2.85 L Cancelled Hgb (12.0 - 16.0 G/DL) 8.9 L Cancelled Hct (37 - 47 %) 27.1 L Cancelled MCV (81.0 - 99.0 FL) 95.1 Cancelled MCH (27.0 - 31.0 PG) 31.3 H Cancelled MCHC (33.0 - 37.0 G/DL) 32.9 L Cancelled RDW (11.5 - 14.5 %) 14.4 Cancelled Plt Count (130 - 400 /CUMM) 75 L Cancelled MPV (7.4 - 10.4 FL) 10.2 Cancelled Gran % (42.2 - 75.2 %) 88.1 H Lymphocytes % (20.5 - 51.1 %) 4.0 L Monocytes % (1.7 - 9.3 %) 7.8 Eosinophils % (0 - 5 %) 0 Basophils % (0.0 - 2.0 %) 0.1 Absolute Granulocytes (1.4 - 6.5 /CUMM) 6.8 H Absolute Lymphocytes (1.2 - 3.4 /CUMM) 0.3 L Absolute Monocytes (0.10 - 0.60 /CUMM) 0.6 Absolute Eosinophils (0.0 - 0.7 /CUMM) 0 Absolute Basophils (0.0 - 0.2 /CUMM) 0 09/21 09/20 09/20 09/20 0043 2130 2130 1999 Chemistry Lactic Acid (0.7 - 2.1 mmol/L) 0.8 Other Body Source CSF WBC (0 - 5 /CUMM) 2 CSF RBC (-0 /CUMM) 0 CSF Comment CSF Glucose (40 - 70 mg/dL) 60 CSF Total Protein (12 - 60 mg/dL) 39 Toxicology Urine Opiates Screen (>2000 NG/ML) < 100.00 Methadone Screen (>300 NG/ML) < 40 Barbiturate Screen (>200 NG/ML) < 60 Ur Phencyclidine Scrn (>25 NG/ML) < 6.00 Amphetamines Screen (>1000 NG/ML) < 100 U Benzodiazepines Scrn (>200 NG/ML) < 85 Urine Cocaine Screen (>300 NG/ML) < 50 Urine Cannabis Screen (>50 NG/ML) < 5.00 Urines Urine Color (YEL,AMB,STR) STRAW Urine Clarity (CLEAR) HAZY H Urine pH (5.0 - 8.0) 6.5 Ur Specific [place] (1.001 - 1.035) 1.010 Urine Protein (NEG,<30 MG/DL) 100 H Urine Ketones (NEG) NEG Urine Nitrite (NEG) NEG Urine Bilirubin (NEG) NEG Urine Urobilinogen (0.1 - 1.0 EU/dl) 0.2 Ur Leukocyte Esterase (NEG) LARGE H Ur Microscopic SEDIMENT EXAMINED Urine RBC (0 - 5 /HPF) FEW H Urine WBC (0 - 2 /HPF) > 75 H Ur Epithelial Cells (NONE,FEW) MANY H Urine Bacteria (NEG/NONE) MANY H Urine Hemoglobin (NEG) MOD H Urine Glucose (N MG/DL) NEG 09/20 09/20 193 1418 Chemistry Sodium (137 - 145 mmol/L) 139 Potassium (3.5 - 5.1 mmol/L) 4.5 Chloride (98 - 107 mmol/L) 103 Carbon Dioxide (22 - 30 mmol/L) 21 L Anion Gap (5 - 16) 15 BUN (7 - 17 mg/dL) 26 H Creatinine (0.5 - 1.0 mg/dL) 1.9 H Estimated GFR (>60 ml/min) 27 L BUN/Creatinine Ratio (7 - 25 %) 13.7 Glucose (65 - 99 mg/dL) 93 Lactic Acid (0.7 - 2.1 mmol/L) 0.8 Calcium (8.4 - 10.2 mg/dL) 10.1 Magnesium (1.6 - 2.3 mg/dL) 2.3 Total Bilirubin (0.2 - 1.3 mg/dL) 0.4 AST (14 - 36 U/L) 17 ALT (9 - 52 U/L) 30 Alkaline Phosphatase (<127 U/L) 74 Ammonia (9 - 30 umol/L) < 9 L Creatine Kinase (30 - 135 U/L) 26 L Troponin I (< 0.11 ng/ml) < 0.01 Total Protein (6.3 - 8.2 g/dL) 6.7 Albumin (3.5 - 5.0 g/dL) 4.2 Globulin (1.9 - 4.2 gm/dL) 2.5 Albumin/Globulin Ratio (1.1 - 2.2 %) 1.7 TSH (0.270 - 4.200 uIU/mL) 1.010 Free T4 (0.64 - 1.79 ng/dL) 0.81 Hematology CBC w Diff NO MAN DIFF REQ WBC (4.8 - 10.8 /CUMM) 10.4 RBC (4.20 - 5.40 /CUMM) 3.92 L Hgb (12.0 - 16.0 G/DL) 12.2 Hct (37 - 47 %) 36.5 L MCV (81.0 - 99.0 FL) 93.1 MCH (27.0 - 31.0 PG) 31.1 H MCHC (33.0 - 37.0 G/DL) 33.4 RDW (11.5 - 14.5 %) 14.0 Plt Count (130 - 400 /CUMM) 122 L MPV (7.4 - 10.4 FL) 9.7 Gran % (42.2 - 75.2 %) 88.3 H Lymphocytes % (20.5 - 51.1 %) 6.0 L Monocytes % (1.7 - 9.3 %) 5.5 Eosinophils % (0 - 5 %) 0.1 Basophils % (0.0 - 2.0 %) 0.1 Absolute Granulocytes (1.4 - 6.5 /CUMM) 9.2 H Absolute Lymphocytes (1.2 - 3.4 /CUMM) 0.6 L Absolute Monocytes (0.10 - 0.60 /CUMM) 0.6 Absolute Eosinophils (0.0 - 0.7 /CUMM) 0 Absolute Basophils (0.0 - 0.2 /CUMM) 0 Toxicology [place] (0.6 - 1.2 mmol/L) 0.5 L Serum Alcohol (<10 MG/DL) < 10.0 Imaging Results: PATIENT: YANCI HUTSON PRESENT AGE: 57 PATIENT ACCOUNT NO: [id number] : 56 LOCATION: [facility] ORDERING PHYSICIAN: Wendy Rothman MD SERVICE DATE: 09/21/17- EXAM TYPE: CAT - CT ABD & PELVIS W/O IV CONTRAS EXAMINATION: CT ABDOMEN AND PELVIS WITHOUT CONTRAST CLINICAL INFORMATION: Fever hypotension and urinary symptoms. Rule out pyelonephritis. COMPARISON: There are no prior studies for comparison. TECHNIQUE: Multidetector volumetric imaging was performed from the superior aspect of the liver through the pubic symphysis. Sagittal and coronal reformatted images were obtained on the technologist's workstation. DLP: 283.0 mGy-cm FINDINGS: LUNG BASES: Pleural thickening is present in the posterior aspect of the bilateral lung bases, greater on the right than on the left. Increased density in the lateral aspect of the right lung base extends toward the hilum suggestive of scarring. There is an area of increased density in the posterior lateral aspect of the right lung base, which contains a few air bronchograms. LIVER, GALLBLADDER, AND BILIARY TREE: The liver is difficult to assess without presence of IV contrast, the periportal regions are prominent which could represent either increased periportal fat or intrahepatic biliary ductal dilation. The possibility of mesenteric fat for this patient precludes evaluation for size of the common bile duct. The gallbladder is unremarkable with no evidence of radiopaque gallstones, gallbladder wall thickening, or obvious pericholecystic inflammatory changes. PANCREAS: Unremarkable. SPLEEN: Prominent, no focal splenic lesions.. ADRENAL GLANDS: Unremarkable. KIDNEYS AND URETERS: There is heterogeneous attenuation of both kidneys, with findings suggestive of renal cysts, in the upper pole of the right kidney and exophytic to the upper pole/mid region of the left kidney. The structure in the upper pole the right kidney is measures approximately 2.5 cm in size, while the cystic structure in the left kidney measures 4.5 cm. Both measure fluid density by Hounsfield units. No hydronephrosis is present no renal calculi are noted. Evaluation for perinephric inflammatory changes is not possible due to paucity of mesenteric fat.. BLADDER: Unremarkable. GASTROINTESTINAL TRACT: The small and large bowel are unremarkable. The appendix is not identified. ABDOMINAL WALL: No significant hernia is appreciated. LYMPH NODES: Numerous mesenteric lymph nodes are present, there is borderline lymphadenopathy in the right periaortic pericaval region, lymph nodes range in size from 1.0 to 1.1 cm in short axis dimension. VASCULAR: Unremarkable. PELVIC VISCERA: Unremarkable. OSSEOUS STRUCTURES: Broad-based dextroscoliosis of the thoracolumbar spine, with severe multilevel degenerative changes present in the lumbar spine. This includes cystic and sclerotic endplate changes throughout the lumbar spine as well as grade 1-2 anterolisthesis of L4 on L5.. IMPRESSION: 1. Increased density in the posterior lateral aspect of the right lung base containing air bronchograms. The findings are consistent with consolidation versus infiltrate versus atelectasis. Clinical correlation requested. Follow-up to resolution recommended. 2. Periaortic/paracaval lymphadenopathy is present. 3. Lack of IV contrast is limiting with regard to evaluation for pyelonephritis, multiple hypodense renal cysts are present. 4. Prominence of the periportal regions of the liver may represent prominent periportal fat versus intrahepatic biliary ductal dilation, the possibility of the mesenteric fat for this patient precludes evaluation of the extrahepatic biliary system. Assessment/Plan Assessment/Plan pt with UTI/SEPSIS and mental status change-now improved on abx./admit per med. recommend bladder US with post-void residual Copies To: Jacoby Alonzo MD Consult Acknowledgment - Thank you for your consult request. Attending MD Review Statement Attending Statement Attending MD Statement: examined this patient, discuss w/resident/PA/[employer] Attending Assessment/Plan: pt with frequent UTI since "bladder lift and sling" surgery at [place] several years ago. Will need PVR US of bladder to evaluate emptying. Will need cystoscopy-can be done as outpt if dc d home shortly
[2017-09-21 21:26] VITALS: BP 104/59
[2017-09-21 21:58] VITALS: BP 104/58
[2017-09-22 06:59] VITALS: BP 104/64
--- NOTE | 2017-09-22 08:19 | PN- Housestaff ---
Wendy Rothman 09/22/17 0819: Subjective Follow-up For: Sepsis of urologic origin Altered mental status(metabolic encephalopathy secondary to underlying urinary tract infection) History of bipolar disease History of IBS Subjective: Patient is seen and examined this morning seems much better, nausea is better. Vitals are stable. Denies any shortness of breath trouble breathing palpitations. Denies any abdominal discomfort. No urinary symptoms including hematuria or frequency urgency. Review of Systems Constitutional: Denies: chills, diaphoresis, fever, malaise. EENTM: Denies: double vision, visual changes, eye pain. Cardiovascular: Denies: chest pain, edema. Respiratory: Denies: cough, orthopnea. Gastrointestinal: Denies: abdominal pain, bloating, constipation. Genitourinary: Denies: discharge, dysuria. Musculoskeletal: Denies: back pain, gout. Objective Last 24 Hrs of Vital Signs/I&O Vital Signs Date Time Temp Pulse Resp B/P B/P Pulse O2 O2 Flow FiO2 Mean Ox Delivery Rate 09/22 0559 98.2 63 20 104/64 98 09/21 2158 98.5 69 20 104/58 95 Room Air 09/21 2126 104/59 Physical Exam General Appearance: Alert, Oriented X3 Skin: No Rashes, No Breakdown Skin Temp/Moisture Exam: Warm/Dry HEENT: Atraumatic, PERRLA Neck: Supple, No JVD Cardiovascular: Regular Rate, Normal S1, Normal S2 Lungs: Clear to Auscultation, Normal Air Movement Abdomen: Normal Bowel Sounds, Soft Neurological: Normal Gait, Normal Speech Current Medications: Current Medications Sig/Kirk Start time Last Medication Dose Route Stop Time Status Admin Ceftriaxone Sodium 1,000 MG DAILY 09/21 1000 AC 09/22 IV 0907 Fluoxetine HCl 20 MG DAILY 09/21 1000 AC 09/22 PO 0907 Heparin Sodium 5,000 UNIT Q8 09/21 0600 AC 09/22 (Porcine) SC 0631 Lactobacillus 1 CAP BID 09/21 1315 AC 09/22 Acidophilus PO 0907 [place] Carbonate 300 MG BID 09/21 1000 AC 09/22 PO 0907 Modafinil 200 MG DAILY 09/21 1000 AC 09/22 PO 0907 Assessment/Plan Assessment: Patient is a 52-year-old female with past medical history significant for bipolar disorder, IBS, ADHD, recurrent urinary tract infections with last many years(chronically on antibiotics), presented again to the ED for the evaluation of altered mental status with evidence of urinary tract infection on labs. Personal vitals on admission: Tmax of 101.4, with blood pressure 107/65, pulse 80s, RR 22, Labs: WBC 10.4, hemoglobin 12.2, hematocrit 36.5, platelet 122, neutrophils 88%, BMP and LFT unremarkable except creatinine 1.9, ammonia less than 9, CK 26, troponin 0.01, U tox unremarkable UA positive for leukocyte esterase CSF WBC to RBC [address] head: No acute intracranial pathology. Problem list: Sepsis of urologic origin Altered mental status(metabolic and gastropathy secondary to underlying urinary tract infection) History of bipolar disease History of IBS Plan: Sepsis of urologic origin with Altered mental status(metabolic encephalopathy secondary to underlying urinary tract infection) * Continue to monitor patient on the [employer] * Mental status improved after getting IV antibiotics and fluids, urine cultures grew Ecoli, blood cultures grew gram neg rods(sensitivities pending) * Continue with IV ceftriaxone and fluids for now pending above * Pending blood cultures. * Patient has been evaluated by Dr. Alonzo recommended to continue with conservative management with IV antibiotics and fluids, will do bladder scan with residual urine volume. * Obtain CT abdomen and pelvis without contrast to rule out any underlying pyelonephritis( CT cannot be done with contrast due to elevated creatinine. * H&H dropped likely due to hemodilution after getting fluids Will monitor CBCs tomorrow. Acute kidney failure likely due to the dehydration * Creatinine improved from yesterday continue with IV fluids avoid any nephrotoxic agents. Hypernatremia * Likely due to dehydration * Monitor sodium tomorrow Continue all her home medications. DVT prophylaxis with heparin Patient is full code Problem List: 1. UTI (urinary tract infection) 2. Sepsis 3. Altered mental status Pain Ratin Pain Location: No pain at this time Pain Goal: Remain pain free Pain Plan: prn tylenol Tomorrow's Labs & Rationales: cbc and bep today Kelly Toney MD 09/22/17 1129: Attending MD Review Statement Attending Statement Attending Statement: examined this patient, discuss w/resident/PA/[employer], agreed w/resident/PA/[employer], discussed with family, reviewed EMR data (avail), discussed with nursing, discussed with case mgmt, reviewed images, amended to note Attending Assessment/Plan: Patient seen and examined, overall feeling better. Her pain is improved. She was seen by urologist Dr. Alonzo and he recommended to check bladder ultrasound and PVR. Urine culture growing Escherichia coli. Blood culture growing gram- negative rods and final sensitivity and identification is pending. Vital Signs Date Time Temp Pulse Resp B/P B/P Pulse O2 O2 Flow FiO2 Mean Ox Delivery Rate 09/22 0559 98.2 63 20 104/64 98 09/21 2158 98.5 69 20 104/58 95 Room Air 09/216 104/59 09/21 1156 98.1 74 20 100/60 100 Room Air on exam: aox3, nad. cv; s1, s2, rrr resp; clear abd; soft, bs+, + cva tenderness. ext; no edema. labs pending. A/P; 57 y/o F with pmh sig for bipolar disorder, manic depressive disorder, IBS, admitted with sepsis, bacteremia and UTI. Urine culture growing Escherichia coli. Continue ceftriaxone. Will follow-up on the final blood cultures. We will check a bladder ultrasound and PVR as recommended by urology. Continue the rest of the medications and patient continues to improve and likely antibiotics can be switched to oral tomorrow and she can be discharged home. Labs are pending, will follow. DVT px: Heparin subcutaneous
[2017-09-22 14:54] VITALS: BP 108/60
--- NOTE | 2017-09-22 16:12 | Discharge Summary ---
Visit Information Visit Dates Admission Date: 09/20/17 Discharge Date: 09/23/17 Hospital Course Course Attending Physician: Kelly Toney MD Primary Care Physician: Candido Rojas APRN [facility] Course: Patient is a 52-year-old female with past medical history significant for bipolar disorder, IBS, ADHD, recurrent urinary tract infections with last many years(chronically on antibiotics), presented again to the ED for the evaluation of altered mental status with evidence of urinary tract infection on labs. Personal vitals on admission: Tmax of 101.4, with blood pressure 107/65, pulse 80s, RR 22, Labs: WBC 10.4, hemoglobin 12.2, hematocrit 36.5, platelet 122, neutrophils 88%, BMP and LFT unremarkable except creatinine 1.9, ammonia less than 9, CK 26, troponin 0.01, U tox unremarkable UA positive for leukocyte esterase CSF WBC to RBC 0 glucose [address] head: No acute intracranial pathology. Problem list: Sepsis of urologic origin Altered mental status(metabolic and gastropathy secondary to underlying urinary tract infection) History of bipolar disease History of IBS Plan: Sepsis of urologic origin with Altered mental status(metabolic encephalopathy secondary to underlying urinary tract infection): Patient was admitted to the [facility] floor. IV ceftriaxone was started for sepsis of urological origin along with aggressive IV hydration. Her mental status improved within 24 hours of admission. Urology consult with Dr. Alonzo was obtained as per recommendations, conservative management was continued. Blood and urine cultures grew Escherichia coli sensitive to ceftriaxone. Bladder scan with residual urine volume was checked CT scan of abdomen and pelvis without contrast was done was done that didn't show any evidence of pyelonephritis, however as she was febrile on admission, hypotensive requiring fluids with the exam positive for bilateral CVA tenderness , she was discharged home on by mouth antibiotics for probable of 14 days(for possible pyelonephritis). Acute kidney failure likely due to the dehydration: Creatinine improved after receiving IV fluids. Hypernatremia: Likely due to dehydration, improved after IV fluids. Other home medications were continued DVT prophylaxis with heparin Patient is full code Allergies: Coded Allergies: No Known Allergies (09/20/17) Significant Procedures: EXAM TYPE: CAT - CT ABD & PELVIS W/O IV CONTRAS EXAMINATION: CT ABDOMEN AND PELVIS WITHOUT CONTRAST CLINICAL INFORMATION: Fever hypotension and urinary symptoms. Rule out pyelonephritis. COMPARISON: There are no prior studies for comparison. TECHNIQUE: Multidetector volumetric imaging was performed from the superior aspect of the liver through the pubic symphysis. Sagittal and coronal reformatted images were obtained on the technologist's workstation. DLP: 283.0 mGy-cm FINDINGS: LUNG BASES: Pleural thickening is present in the posterior aspect of the bilateral lung bases, greater on the right than on the left. Increased density in the lateral aspect of the right lung base extends toward the hilum suggestive of scarring. There is an area of increased density in the posterior lateral aspect of the right lung base, which contains a few air bronchograms. LIVER, GALLBLADDER, AND BILIARY TREE: The liver is difficult to assess without presence of IV contrast, the periportal regions are prominent which could represent either increased periportal fat or intrahepatic biliary ductal dilation. The possibility of mesenteric fat for this patient precludes evaluation for size of the common bile duct. The gallbladder is unremarkable with no evidence of radiopaque gallstones, gallbladder wall thickening, or obvious pericholecystic inflammatory changes. PANCREAS: Unremarkable. SPLEEN: Prominent, no focal splenic lesions.. ADRENAL GLANDS: Unremarkable. KIDNEYS AND URETERS: There is heterogeneous attenuation of both kidneys, with findings suggestive of renal cysts, in the upper pole of the right kidney and exophytic to the upper pole/mid region of the left kidney. The structure in the upper pole the right kidney is measures approximately 2.5 cm in size, while the cystic structure in the left kidney measures 4.5 cm. Both measure fluid density by Hounsfield units. No hydronephrosis is present no renal calculi are noted. Evaluation for perinephric inflammatory changes is not possible due to paucity of mesenteric fat.. BLADDER: Unremarkable. GASTROINTESTINAL TRACT: The small and large bowel are unremarkable. The appendix is not identified. ABDOMINAL WALL: No significant hernia is appreciated. LYMPH NODES: Numerous mesenteric lymph nodes are present, there is borderline lymphadenopathy in the right periaortic pericaval region, lymph nodes range in size from 1.0 to 1.1 cm in short axis dimension. VASCULAR: Unremarkable. PELVIC VISCERA: Unremarkable. OSSEOUS STRUCTURES: Broad-based dextroscoliosis of the thoracolumbar spine, with severe multilevel degenerative changes present in the lumbar spine. This includes cystic and sclerotic endplate changes throughout the lumbar spine as well as grade 1-2 anterolisthesis of L4 on L5.. IMPRESSION: 1. Increased density in the posterior lateral aspect of the right lung base containing air bronchograms. The findings are consistent with consolidation versus infiltrate versus atelectasis. Clinical correlation requested. Follow-up to resolution recommended. 2. Periaortic/paracaval lymphadenopathy is present. 3. Lack of IV contrast is limiting with regard to evaluation for pyelonephritis, multiple hypodense renal cysts are present. 4. Prominence of the periportal regions of the liver may represent prominent periportal fat versus intrahepatic biliary ductal dilation, the possibility of the mesenteric fat for this patient precludes evaluation of the extrahepatic biliary system. DICTATED BY: Kristy Salmeron MD DATE/TIME DICTATED:09/21/171045 FLANGE TURNER:KWAN DATE/TIME TRANSCRIBED:09/21/171045 CONFIDENTIAL, DO NOT COPY WITHOUT APPROPRIATE AUTHORIZATION. <Electronically signed in Other Vendor System> SIGNED BY: Kristy Salmeron MD [id number] Disposition Summary Disposition Principal Diagnosis: Sepsis of urologic origin with Altered mental status(metabolic encephalopathy secondary to underlying urinary tract infection): Additional Diagnosis: Acute kidney failure likely due to the dehydration: Discharge Disposition: home or self care Discharge Instructions General Discharge Information Code Status: Full Code Patient's Diet: Regular diet Patient's Activity: As tolerated Follow-Up Instructions/Appts: 1. Please follow-up with your primary care physician within 1-2 weeks after discharge. 2. Please follow-up with urology as an outpatient for possible cystoscopy. 3. Take the medications as directed. 4. Return to the ER if the symptoms get worse after discharge Medications at Discharge Discharge Medications: Stop taking the following medications: Nitrofurantoin Macrocrystal (Nitrofurantoin) 50 MG CAPSULE ORAL DAILY Qty = 30 Continue taking these medications: [place] Carbonate ([place] Carbonate) 300 MG CAPSULE 1 Capsule ORAL TWICE DAILY Qty = 60 Fluoxetine HCl (Fluoxetine HCl) 20 MG CAPSULE 1 Capsule ORAL DAILY Qty = 90 Modafinil (Modafinil) 200 MG TABLET 1 Tablet ORAL Every Morning Qty = 30 Start taking the following new medications: Amoxicillin/Potassium Clav (Augmentin 875-125 Tablet) 875 MG-125 MG TABLET 1 Tablet ORAL TWICE DAILY Qty = 29 No Refills Copies To: Candido Rojas APRN
[2017-09-22] MEDS ORDERED: AUGMENTIN 875-1 EACH PO (16:57)
--- NOTE | 2017-09-22 17:00 | Patient Discharge Instructions ---
Discharge Instructions General Discharge Information You were seen/treated for: Sepsis of urological origin(pyelonephritis) Special Instructions: 1. Please follow-up with your primary care physician within 1-2 weeks after discharge. 2. Please follow-up with urology(Dr. Alonzo) as an outpatient for possible cystoscopy. 3. Take the medications as directed. 4. Return to the ER if the symptoms get worse after discharge Diet Recommended Diet: Regular Acute Coronary Syndrome Inclusion Criteria At DC or during hospital stay patient has or had the following: ACS DIAGNOSIS No Discharge Core Measures Meds if any: Prescribed or Continued at Discharge Meds if any: NOT Prescribed or Continued at Discharge Congestive Heart Failure Inclusion Criteria At DC or during hospital stay patient has or had the following: CHF DIAGNOSIS No Discharge Core Measures Meds if any: Prescribed or Continued at Discharge Meds if any: NOT Prescribed or Continued at Discharge Cerebrovascular accident Inclusion Criteria At DC or during hospital stay patient has or had the following: CVA/TIA Diagnosis No Discharge Core Measures Meds if any: Prescribed or Continued at Discharge Meds if any: NOT Prescribed or Continued at Discharge Venous thromboembolism Inclusion Criteria VTE Diagnosis No VTE Type NONE VTE Confirmed by (Test) NONE Discharge Core Measures - Per Current guidelines, there needs to be overlap - treatment for the first 5 days of Warfarin therapy. - If discharged on Warfarin prior to 5 days of - overlap therapy, the patient will need to be - assessed for post discharge needs including - *Post discharge parental anticoagulation - *Warfarin and/or parental anticoagulation education - *Follow up date to check INR post discharge At least 5 days overlap therapy as Inpatient No Meds if any: Prescribed or Continued at Discharge Note: Overlap Therapy is Warfarin and Anticoagulant Meds if any: NOT Prescribed or Continued at Discharge
[2017-09-22 22:07] VITALS: BP 100/60
[2017-09-23 07:40] VITALS: BP 102/62
[2017-09-23 08:21] LABS: ABSOLUTE BASOPHIL COUNT 0 /CUMM (0.0-0.2); ABSOLUTE EOSINOPHIL COUNT 0.2 /CUMM (0.0-0.7); ABSOLUTE LYMPH COUNT 1.1 /CUMM (1.2-3.4); ABSOLUTE MONOCYTE COUNT 0.5 /CUMM (0.10-0.60); BASOPHIL % 0.5 % (0.0-2.0); EOSINOPHIL % 3.1 % (0-5); GRANULOCYTE % 68.6 % (42.2-75.2); HEMATOCRIT 30.4 % (37-47); MEAN CORPUSCULAR HGB 31.5 PG (27.0-31.0); MEAN CORPUSCULAR HGB CONC 33.4 G/DL (33.0-37.0); MEAN CORPUSCULAR VOLUME 94.2 FL (81.0-99.0); MEAN PLATELET VOLUME 10.8 FL (7.4-10.4); RBC DISTRIBUTION WIDTH 14.1 % (11.5-14.5); RED BLOOD CELL CT 3.23 /CUMM (4.20-5.40); WHITE BLOOD CELL COUNT 5.8 /CUMM (4.8-10.8)
[2017-09-23] MEDS ORDERED: AUGMENTIN 875-1 EACH PO (09:28)
--- NOTE | 2017-09-23 10:41 | PN- Housestaff ---
Wendy Rothman 09/23/17 1041: Subjective Follow-up For: Sepsis of urologic origin Altered mental status(metabolic encephalopathy secondary to underlying urinary tract infection) History of bipolar disease History of IBS Subjective: Patient is seen and examined this morning seems much better than yesterday, remains afebrile. Denies any nausea/vomiting, no abdominal discomfort. If patient remains stable will discharge the patient home on by mouth Augmentin for a total of 14 days. Review of Systems Constitutional: Denies: chills, diaphoresis, fever. Cardiovascular: Denies: chest pain, edema. Respiratory: Denies: cough, orthopnea, short of breath. Objective Last 24 Hrs of Vital Signs/I&O Vital Signs Date Time Temp Pulse Resp B/P B/P Pulse O2 O2 Flow FiO2 Mean Ox Delivery Rate 09/23 0740 97.5 66 18 102/62 98 09/22 2207 97.5 58 18 100/60 96 Room Air 09/22 1454 98.5 70 18 108/60 99 Room Air Physical Exam General Appearance: Alert, Oriented X3 Skin: No Rashes, No Breakdown HEENT: Atraumatic, PERRLA Neck: Supple, No JVD Cardiovascular: Regular Rate, Normal S1, Normal S2 Lungs: Clear to Auscultation, Normal Air Movement Abdomen: Normal Bowel Sounds, Soft, No Tenderness Neurological: Normal Gait, Normal Speech Extremities: No Clubbing, No Cyanosis, Normal Pulses Current Medications: Current Medications Sig/Kirk Start time Last Medication Dose Route Stop Time Status Admin Amoxicillin/ 875 MG Q12 09/23 1000 AC 09/23 Clavulanate Potassium PO 0837 Ceftriaxone Sodium 1,000 MG DAILY 09/21 1000 DC 09/22 IV 09/22 2300 0907 Fluoxetine HCl 20 MG DAILY 09/21 1000 AC 09/23 PO 0836 Heparin Sodium 5,000 UNIT Q8 09/21 0600 AC 09/23 (Porcine) SC 0554 Lactobacillus 1 CAP BID 09/21 1315 AC 09/22 Acidophilus PO 2150 [place] Carbonate 300 MG BID 09/21 1000 AC 09/23 PO 0836 Modafinil 200 MG DAILY 09/21 1000 AC 09/23 PO 0836 Last 24 Hrs of Lab/Danie Results Last 24 Hrs of Labs/Mics: Laboratory Tests 09/23/17 0639: Anion Gap 12, Estimated GFR 42 L, BUN/Creatinine Ratio 16.2, CBC w Diff Pending , WBC Pending, RBC Pending, Hgb Pending, Hct Pending, MCV Pending, MCH Pending, MCHC Pending, RDW Pending, Plt Count Pending, MPV Pending Assessment/Plan Assessment: Patient is a 52-year-old female with past medical history significant for bipolar disorder, IBS, ADHD, recurrent urinary tract infections with last many years(chronically on antibiotics), presented again to the ED for the evaluation of altered mental status with evidence of urinary tract infection on labs. Personal vitals on admission: Tmax of 101.4, with blood pressure 107/65, pulse 80s, RR 22, Labs: WBC 10.4, hemoglobin 12.2, hematocrit 36.5, platelet 122, neutrophils 88%, BMP and LFT unremarkable except creatinine 1.9, ammonia less than 9, CK 26, troponin 0.01, U tox unremarkable UA positive for leukocyte esterase CSF WBC to RBC 0 glucose [address] head: No acute intracranial pathology. Problem list: Sepsis of urologic origin Altered mental status(metabolic and gastropathy secondary to underlying urinary tract infection) History of bipolar disease History of IBS Plan: Sepsis of urologic origin with Altered mental status(metabolic encephalopathy secondary to underlying urinary tract infection) * Continue to monitor patient on the [facility] * Mental status improved after getting IV antibiotics and fluids. * Patient has been evaluated by Dr. Alonzo recommended to continue with conservative * urine and blood cultures grewgrew Ecoli-sensitive to Augmentin * If patient remains stable will discharge the patient home on by mouth Augmentin for a total of 14 days. Acute kidney failure likely due to the dehydration * Creatinine improved from yesterday continue with IV fluids avoid any nephrotoxic agents. Hypernatremia * Likely due to dehydration * Monitor sodium tomorrow Continue all her home medications. DVT prophylaxis with heparin Patient is full code Problem List: 1. UTI (urinary tract infection) 2. Sepsis 3. Stroke 4. Altered mental status Pain Ratin Pain Location: No pain at this time Pain Goal: Remain pain free Pain Plan: PRN Tylenol Tomorrow's Labs & Rationales: no labs Kelly Toney MD 09/23/17 1154: Attending Review Statement Attending Statement Attending MD Statement: examined this patient, discuss w/resident/PA/[employer], agreed w/resident/PA/[employer], reviewed EMR data (avail), discussed with nursing, discussed with case mgmt, amended to note Attending Assessment/Plan: Patient seen and examined, overall doing much better. Her back pain and abdominal pain is relieved. Patient remains afebrile. Blood culture also growing Escherichia coli which is sensitive to Augmentin. She will be converted to Augmentin today and medically stable for discharge. She will follow per Dr. Alonzo as an outpatient, she will also follow-up with primary care doctor.
[2017-09-23 11:00] LABS: PLATELET COUNT 122 /CUMM (130-400)
== END 2017-09-23 11:10 | DRG 871 ==
LOC: ERH 13:57 → ERHI 23:33 → 2NB 23:33 → ERHI 09-21 08:23 → ENRESERV 09-21 13:03 → ENTRNSPT 09-21 13:52 → EDTRNSPT 09-21 14:13 → EDTRNSPTSTS 09-21 14:13 → CMPTRNSPT 09-21 14:21 → 2NB 09-21 14:22
PROVIDERS: Emergency Medicine; Student in an Organized Health Care Education/Training Program
DX: A41.51 Sepsis due to Escherichia coli [E. coli] (principal); G93.41 Metabolic encephalopathy; N17.9 Acute kidney failure, unspecified; E87.0 Hyperosmolality and hypernatremia; N39.0 Urinary tract infection, site not specified; E86.0 Dehydration; F31.9 Bipolar disorder, unspecified; B96.20 Unspecified Escherichia coli [E. coli] as the cause of diseases classified elsewhere; K58.9 Irritable bowel syndrome, unspecified; K31.9 Disease of stomach and duodenum, unspecified; Z87.891 Personal history of nicotine dependence; Z96.659 Presence of unspecified artificial knee joint
CPT/HCPCS: 2NBSP; 87070; 87205; ERO; 36415; 74176; 80307; 81001; 82436; 87040; 87086; 87804; 87804-59; 88305; 93005; 93010; 96361; 96374; 96375; 99291; G0480; J0131; J0696; J1644